=== PATIENT | female | born 1995 | race Caucasian/White ===

== ENCOUNTER → 2017-03-12 | Outpatient (CLI) | payer OTHER ==
--- NOTE | 2017-03-12 15:04 | CT ---
EXAMINATION TYPE: CT soft tissue neck w con DATE OF EXAM: 03/12/2017 HISTORY: Patient had abnormal US at doctors office showing a possible left side supraclavicular/neck base mass (globus). Mass is not palpable. Patient complains of dysphagia and dyspnea on exertion. COMPARISON: NONE CT DLP: 210.7 mGycm. Automated Exposure Control for Dose Reduction was Utilized. TECHNIQUE: CT scan of the neck is performed with IV Contrast, patient injected with 100 mL of Omnipa que 300, axial images are obtained, coronal and sagittal reformatted images are reviewed. FINDINGS: Airway: No gross abnormality seen. The oropharynx and nasopharynx are patent. Parotid/submandibular glands: No gross abnormality seen. No adjacent inflammation. Carotid/Vascular Structures: No evidence of occlusion, dissection, or focal stenosis. Osseous Structures: Osseous structures are intact with straightening of the usual cervical lordosis p resumed to be positional. No prevertebral soft tissue swelling. Other: Few nonenlarged anterior and posterior cervical chain lymph nodes are present. No evidence of adenopathy within the neck. No supraclavicular masses seen on the right or left correspond with the p revious possible abnormal ultrasound at an outside institution. IMPRESSION: No CT finding to correspond with the patient's possible left-sided supraclavicular/neck mass. No evid ence of focal mass or adenopathy.
== END | disposition home or self-care (01) ==
LOC: RADCTMAIN 13:50
PROVIDERS: ATTEND Surgery
DX: R22.1 Localized swelling, mass and lump, neck (principal)
CPT/HCPCS: 70491; Q9967

== ENCOUNTER → 2017-03-13 | Outpatient (CLI) | payer OTHER ==
--- NOTE | 2017-03-13 13:59 | XR ---
EXAMINATION TYPE: XR chest 2V DATE OF EXAM: 03/13/2017 COMPARISON: NONE HISTORY: Possible nodule TECHNIQUE: Frontal and lateral views of the chest are obtained. FINDINGS: There is no focal air space opacity, pleural effusion, or pneumothorax seen. The cardiac silhouette size is within normal limits. The osseous structures are intact. No pulmonary nodule or mass is identified. IMPRESSION: No acute cardiopulmonary process. No visualized pulmonary nodule or mass.
== END | disposition home or self-care (01) ==
LOC: RADXRMAIN 13:26
PROVIDERS: ATTEND Surgery
DX: R22.1 Localized swelling, mass and lump, neck (principal)
CPT/HCPCS: 71020

== ENCOUNTER 2020-04-14 18:57 | Emergency (ER) | payer OTHER ==
[2020-04-14] MEDS ORDERED: MORPHINE SULFATE 4 MG/ML SYRINGE IV STA (19:28)
[2020-04-14] MEDS ORDERED: SODIUM CHLORIDE 0.9% 500 ML 500 ML IV STA (19:28)
--- NOTE | 2020-04-14 19:40 | ED ---
General Adult HPI - General Source: patient, RN notes reviewed, old records reviewed Mode of arrival: ambulatory Limitations: no limitations <Roni De Luna - Last Filed: 04/14/20 20:57> <Roni Tavares - Last Filed: 04/14/20 22:44> - General Chief complaint: Abdominal Pain Stated complaint: abdominal pain Time Seen by Provider: 04/14/20 19:16 - History of Present Illness Initial comments: 24-year-old female presenting with left-sided abdominal pain. Pain began 2 hours prior to arrival. Patient has not had a bowel movement yet today. She has had some flatus. She denies fever. Pain was sudden in onset. Began as crampy pain. Left-sided shooting across the belly button to the right side. No preceding fever. No dysuria or hematuria. She does have some left flank pain as well. She denies vaginal discharge, she is finishing her menstrual cycle today. (Roni De Luna) - Related Data Previous Rx's Medication Instructions Recorded Ibuprofen [Motrin] 600 mg PO Q6HR PRN #20 tab 12/17/15 Penicillin V Potassium [Pen Vee K] 500 mg PO QID #40 tab 12/17/15 Allergies Allergy/AdvReac Type Severity Reaction Status Date / Time bee venom protein (honey bee) Allergy Rash/Hives Verified 04/14/20 19:02 Review of Systems ROS Other: All systems not noted in ROS Statement are negative. <Roni De Luna - Last Filed: 04/14/20 20:57> ROS Other: All systems not noted in ROS Statement are negative. <Roni Tavares - Last Filed: 04/14/20 22:44> ROS Statement: Those systems with pertinent positive or pertinent negative responses have been documented in the HPI. Past Medical History Past Medical History: No Reported History History of Any Multi-Drug Resistant Organisms: None Reported Additional Past Surgical History / Comment(s): finger surg, Past Psychological History: No Psychological Hx Reported Smoking Status: Never smoker Past Alcohol Use History: Rare Past Drug Use History: None Reported <Roni De Luna - Last Filed: 04/14/20 20:57> General Exam Limitations: no limitations General appearance: alert, in no apparent distress Head exam: Present: atraumatic, normocephalic Eye exam: Present: normal appearance ENT exam: Present: normal exam Neck exam: Present: normal inspection. Absent: tenderness, meningismus Respiratory exam: Present: normal lung sounds bilaterally. Absent: respiratory distress, wheezes, rales Cardiovascular Exam: Present: regular rate, normal rhythm GI/Abdominal exam: Present: soft, tenderness (generalized tenderness, worse on the left). Absent: distended, rigid Extremities exam: Present: normal inspection, normal capillary refill. Absent: pedal edema Back exam: Present: CVA tenderness (L), paraspinal tenderness Neurological exam: Present: alert, oriented X3, CN II-XII intact. Absent: motor sensory deficit Psychiatric exam: Present: normal affect, normal mood Skin exam: Present: warm, dry, intact. Absent: cyanosis, diaphoretic <Roni De Luna - Last Filed: 04/14/20 20:57> Course <Roni De Luna - Last Filed: 04/14/20 20:57> Vital Signs 04/14/20 04/14/20 18:58 21:58 Temperature 99 F 98.9 F Pulse Rate 72 78 Respiratory 18 16 Rate Blood Pressure 134/84 109/69 O2 Sat by Pulse 99 98 Oximetry - Reevaluation(s) Reevaluation #1: 04/14/20 20:52 patient reevaluated, symptoms have improved. X-ray does show a stool burden in the rectum and lower colon. We will attempt enema. (Roni De Luna) Reevaluation #2: 04/14/20 2100 care signed outat shift change to Dr. Tavares awaiting reevaluation. (Roni De Luna) Medical Decision Making - Lab Data Result diagrams: 04/14/20 20:02 04/14/20 20:02 <Roni De Luna - Last Filed: 04/14/20 20:57> - Lab Data Result diagrams: 04/14/20 20:02 04/14/20 20:02 - Radiology Data Radiology results: report reviewed (I did evaluate the imaging and report no evidence of acute findings other than there is evidence of fecal material in the lower colon or rectal area. Appendix appears be normal.), image reviewed <Roni Tavares - Last Filed: 04/14/20 22:44> - Medical Decision Making Patient was endorsed me by Dr. De Luna at our shift change pending CAT scan results and results of an enema. He did get no relief but has no pain at this time. I did discuss the patient's findings with her and her family. Patient be discharged after discussion she'll be discharged home with a bottle of citrate of magnesium as well as a Therevac. She would prefer to do this at home than in the hospital. We did discuss fiber and fluid intake. She'll be discharged with follow-up with her doctor return when necessary (Roni Tavares) - Lab Data Lab Results 04/14/20 04/14/20 04/14/20 Range/Units 20:02 20:02 20:02 WBC 7.1 (3.8-10.6) k/uL RBC 4.36 (3.80-5.40) m/uL Hgb 14.9 (11.4-16.0) gm/dL Hct 44.2 (34.0-46.0) % MCV 101.3 H (80.0-100.0) fL MCH 34.1 (25.0-35.0) pg MCHC 33.7 (31.0-37.0) g/dL RDW 11.3 L (11.5-15.5) % Plt Count 277 (150-450) k/uL Neutrophils % 75 % Lymphocytes % 17 % Monocytes % 5 % Eosinophils % 1 % Basophils % 1 % Neutrophils # 5.3 (1.3-7.7) k/uL Lymphocytes # 1.2 (1.0-4.8) k/uL Monocytes # 0.4 (0-1.0) k/uL Eosinophils # 0.1 (0-0.7) k/uL Basophils # 0.0 (0-0.2) k/uL PT 10.5 (9.0-12.0) sec INR 1.0 (<1.2) APTT 24.1 (22.0-30.0) sec Sodium (137-145) mmol/L Potassium (3.5-5.1) mmol/L Chloride (98-107) mmol/L Carbon Dioxide (22-30) mmol/L Anion Gap mmol/L BUN (7-17) mg/dL Creatinine (0.52-1.04) mg/dL Est GFR (CKD-EPI)AfAm (>60 ml/min/1.73 sqM) Est GFR (CKD-EPI)NonAf (>60 ml/min/1.73 sqM) Glucose (74-99) mg/dL Plasma Lactic Acid [place] (0.7-2.0) mmol/L Calcium (8.4-10.2) mg/dL Total Bilirubin (0.2-1.3) mg/dL AST (14-36) U/L ALT (4-34) U/L Alkaline Phosphatase (38-126) U/L Total Protein (6.3-8.2) g/dL Albumin (3.5-5.0) g/dL Amylase (30-110) U/L Lipase (23-300) U/L Urine Color Yellow Urine Appearance Clear (Clear) Urine pH 5.5 (5.0-8.0) Ur Specific [place] 1.025 (1.001-1.035) Urine Protein Negative (Negative) Urine Glucose (UA) Negative (Negative) Urine Ketones Negative (Negative) Urine Blood Negative (Negative) Urine Nitrite Negative (Negative) Urine Bilirubin Negative (Negative) Urine Urobilinogen <2.0 (<2.0) mg/dL Ur Leukocyte Esterase Negative (Negative) Urine HCG, Qual (Not Detectd) 04/14/20 04/14/20 04/14/20 Range/Units 20:02 20:02 20:02 WBC (3.8-10.6) k/uL RBC (3.80-5.40) m/uL Hgb (11.4-16.0) gm/dL Hct (34.0-46.0) % MCV (80.0-100.0) fL MCH (25.0-35.0) pg MCHC (31.0-37.0) g/dL RDW (11.5-15.5) % Plt Count (150-450) k/uL Neutrophils % % Lymphocytes % % Monocytes % % Eosinophils % % Basophils % % Neutrophils # (1.3-7.7) k/uL Lymphocytes # (1.0-4.8) k/uL Monocytes # (0-1.0) k/uL Eosinophils # (0-0.7) k/uL Basophils # (0-0.2) k/uL PT (9.0-12.0) sec INR (<1.2) APTT (22.0-30.0) sec Sodium 138 (137-145) mmol/L Potassium 4.1 (3.5-5.1) mmol/L Chloride 105 (98-107) mmol/L Carbon Dioxide 27 (22-30) mmol/L Anion Gap 6 mmol/L BUN 24 H (7-17) mg/dL Creatinine 1.15 H (0.52-1.04) mg/dL Est GFR (CKD-EPI)AfAm 76 (>60 ml/min/1.73 sqM) Est GFR (CKD-EPI)NonAf 66 (>60 ml/min/1.73 sqM) Glucose 103 H (74-99) mg/dL Plasma Lactic Acid [place] 1.1 (0.7-2.0) mmol/L Calcium 9.8 (8.4-10.2) mg/dL Total Bilirubin 0.8 (0.2-1.3) mg/dL AST 26 (14-36) U/L ALT 14 (4-34) U/L Alkaline Phosphatase 52 (38-126) U/L Total Protein 7.5 (6.3-8.2) g/dL Albumin 4.5 (3.5-5.0) g/dL Amylase 64 (30-110) U/L Lipase 185 (23-300) U/L Urine Color Urine Appearance (Clear) Urine pH (5.0-8.0) Ur Specific [place] (1.001-1.035) Urine Protein (Negative) Urine Glucose (UA) (Negative) Urine Ketones (Negative) Urine Blood (Negative) Urine Nitrite (Negative) Urine Bilirubin (Negative) Urine Urobilinogen (<2.0) mg/dL Ur Leukocyte Esterase (Negative) Urine HCG, Qual Not Detected (Not Detectd) Disposition Is patient prescribed a controlled substance at d/c from ED?: No <Roni De Luna - Last Filed: 04/14/20 20:57> Is patient prescribed a controlled substance at d/c from ED?: No <Roni Tavares - Last Filed: 04/14/20 22:44> Clinical Impression: Abdominal pain, Obstipation Disposition: HOME SELF-CARE Condition: Good Instructions (If sedation given, give patient instructions): Abdominal Pain (ED), Obstipation (ED), Constipation (ED) Additional Instructions: Indications for home as directed return when necessary Referrals: Brooks Walker DO [Primary Care Provider] - 1-2 days
[2020-04-14 20:11] LABS: Basophils % (A) 1 %; Eosinophils # (A) 0.1 k/uL (0-0.7); Eosinophils % (A) 1 %; HCT 44.2 % (34.0-46.0); HGB 14.9 gm/dL (11.4-16.0); Lymphocytes # (A) 1.2 k/uL (1.0-4.8); Lymphocytes % (A) 17 %; MCH 34.1 pg (25.0-35.0); MCHC 33.7 g/dL (31.0-37.0); MCV 101.3 fL (80.0-100.0); Mean Platelet Volume 6.9; Monocytes # (A) 0.4 k/uL (0-1.0); Monocytes % (A) 5 %; Neutrophils # (A) 5.3 k/uL (1.3-7.7); Neutrophils % (A) 75 %; Platelet Count 277 k/uL (150-450); RBC 4.36 m/uL (3.80-5.40); RDW 11.3 % (11.5-15.5); WBC 7.1 k/uL (3.8-10.6)
[2020-04-14 20:18] LABS: Appearance,Urine Clear (Clear); Bilirubin,Urine Negative (Negative); Blood,Urine Negative (Negative); Color,Urine Yellow; Glucose,Urine (UA) Negative (Negative); Ketones,Urine Negative (Negative); Leukocyte Esterase,Urine Negative (Negative); Nitrite,Urine Negative (Negative); PH, Urine 5.5 (5.0-8.0); Protein,Urine Negative (Negative); Specific Gravity,Urine 1.025 (1.001-1.035); Urobilinogen,Urine <2.0 mg/dL (<2.0)
[2020-04-14 20:23] LABS: Partial Thromboplastin Time 24.1 sec (22.0-30.0); Prothrombin Time 10.5 sec (9.0-12.0)
[2020-04-14 20:24] LABS: Albumin 4.5 g/dL (3.5-5.0); Calcium 9.8 mg/dL (8.4-10.2); Potassium 4.1 mmol/L (3.5-5.1); Total Bilirubin 0.8 mg/dL (0.2-1.3); Total Protein 7.5 g/dL (6.3-8.2)
[2020-04-14] MEDS ORDERED: SODIUM CHLORIDE 0.9% 500 ML 500 ML IV ONE (20:28)
--- NOTE | 2020-04-14 20:45 | XR ---
EXAMINATION TYPE: XR KUB DATE OF EXAM: 04/14/2020 COMPARISON: None INDICATION: Abdomen pain left lower quadrant TECHNIQUE: Single view abdomen upright view FINDINGS: There is a normal bowel gas pattern. No suspicious air-fluid levels or differential air-fluid levels are present. No free air is evident. Psoas margins are normal. No organomegaly is present. IMPRESSION: 1. Unremarkable Abdomen
[2020-04-14 21:59] VITALS: BP 109/69; PULSE 78; RESP 16; TEMP 98.9
--- NOTE | 2020-04-14 22:05 | CT ---
EXAMINATION TYPE: CT abdomen pelvis w con DATE OF EXAM: 04/14/2020 COMPARISON: 08/16/2012 INDICATION: LLQ pain DLP: 408.5 mGycm, Automated exposure control for dose reduction was used. CONTRAST: 100 mL of Isovue 300. Study performed without Oral Contrast TECHNIQUE: Axial images were obtained from above the diaphragm to the pubic rami in the axial plane a t 5 mm thick sections. Reconstructed images are reviewed on the computer in the coronal plane. FINDINGS: Limited CT sections are obtained the lung bases. The lung bases are clear. CT ABDOMEN: Liver: Normal Spleen: Normal Pancreas: Normal Adrenal glands: The adrenal glands are normal. Gallbladder: Normal Kidneys: No masses are evident. No hydronephrosis is present. No cysts are present. Delayed images were obtained through the kidneys, which remain unremarkable. Aorta: Normal Inferior vena cava: Normal. CT PELVIS: Loops of bowel within the abdomen and pelvis are normal. There may be some wall thickening of the distal rectosigmoid junction. Large fecal bolus is at the sigmoid colon. There is some fecal debris at the ascending colon. No suspicious dilated loops of bowel are evident. There are some fluid-filled small bowel loops within the pelvis could be focal ileus. Appendix: Normal as visualized. Urinary bladder: Normal. Genitourinary structures: Uterus is normal. Adnexal regions appear clear. Osseous structures: No suspicious lytic or sclerotic lesions. IMPRESSIONS: 1. There is a fecal bolus at the level the rectum. Some mild rectal wall thickening may be present. Correlate for colitis. 2. Fluid-filled small bowel loops within the pelvis could reflect some focal ileus. 3. Mild fecal retention. 4. Normal appendix
[2020-04-14] MEDS ORDERED: DOCUSATE 283 MG/5 ML ENEMA RECTAL STA (22:38)
[2020-04-14] MEDS ORDERED: MAGNESIUM CITRATE 296 ML BOTTLE PO ONE (22:38)
== END 2020-04-14 23:07 | disposition home or self-care (01) ==
LOC: EC 18:57
DX: K59.00 Constipation, unspecified (principal); R10.9 Unspecified abdominal pain; Z91.030 Bee allergy status
CPT/HCPCS: 36415; 80053; 82150; 83605; 83690; 85025; 85610; 85730; 81003; 81025; 74018; 74177; 99285; 96374; 96361 ×3; J2270; Q9967

== ENCOUNTER 2022-02-07 18:33 | Observation (INO) | payer OTHER ==
[2022-02-07] MEDS ORDERED: KETOROLAC 15 MG/ML 1 ML VIAL IVP STA (19:30)
[2022-02-07] MEDS ORDERED: SODIUM CHLORIDE 0.9% 1,000 ML IV STA (19:30)
[2022-02-07] MEDS ORDERED: diphenhydrAMINE 50 MG/ML 1 ML VIAL IVP STA (19:33)
[2022-02-07] MEDS ORDERED: PROCHLORPERAZINE INJ 10 MG/2 ML VIAL IVP STA (19:33)
--- NOTE | 2022-02-07 19:49 | ED ---
Headache HPI - General Source: RN notes reviewed Mode of arrival: ambulatory Limitations: no limitations <Berry Dash - Last Filed: 02/08/22 00:32> <Myke Hendricks - Last Filed: 02/11/22 02:23> - General Chief Complaint: Headache Stated Complaint: headache Time Seen by Provider: 02/07/22 19:11 - History of Present Illness Initial Comments: This is a pleasant 26-year-old female who has had intermittent headaches for the past 3 weeks. Patient states that the headache became more severe and more constant on Thursday. She states that these headaches have been Lasting anywhere from a few hours up to 7 hours. She is describing a frontal headache which is aching and throbbing in nature. Patient has had some visual disturbance, photosensitivity, patient has had no preceding aura. Patient states that she feels off. She states that she feels a little off balance when she has a headache plus she feels like she has some clumsiness when she is reaching for things with her hands. Patient saw her primary care provider and was referred to Dr. Gipson but has yet to make that appointment. Patient has had no imaging. Patient has no other health issues. No recent illness. No nausea or vomiting. Patient states there is no exacerbating or alleviating factors a headache. Current headache is about 7 out of 10 in intensity. Patient also states she is having a numb feeling on both sides of her face at times. Currently on the left side of her face. no fever or chills, no changes in vision or hearing, no sore throat or difficulty with speech, no neck pain, no chest pain or shortness of breath, no abdominal pain, no nausea or vomiting, no changes in urination or bowel movements, no numbness or tingling, no extremity pain, no skin rashes or lesions. Past medical, surgical, social, and family history reviewed. (Berry Dash) - Related Data Previous Rx's Medication Instructions Recorded Aspirin EC [Ecotrin Low Dose] 81 mg PO DAILY #30 tab 02/08/22 Butalb/Acetaminophen/Caffeine 1 each PO Q6H PRN #20 cap 02/08/22 [Fioricet 50-300-40 mg Capsule] Famotidine [Pepcid] 20 mg PO DAILY #30 tablet 02/08/22 Allergies Allergy/AdvReac Type Severity Reaction Status Date / Time bee venom protein (honey bee) Allergy Rash/Hives Verified 02/07/22 22:07 Review of Systems ROS Other: All systems not noted in ROS Statement are negative. <Berry Dash - Last Filed: 02/08/22 00:32> ROS Other: All systems not noted in ROS Statement are negative. <Myke Hendricks - Last Filed: 02/11/22 02:23> ROS Statement: Those systems with pertinent positive or pertinent negative responses have been documented in the HPI. Past Medical History Past Medical History: No Reported History History of Any Multi-Drug Resistant Organisms: None Reported Additional Past Surgical History / Comment(s): finger surg, Past Psychological History: No Psychological Hx Reported Smoking Status: Never smoker Past Alcohol Use History: Rare Past Drug Use History: None Reported <Berry Dash - Last Filed: 02/08/22 00:32> General Exam Limitations: no limitations General appearance: alert, in no apparent distress Head exam: Present: atraumatic, normocephalic, normal inspection Eye exam: Present: normal appearance, PERRL, EOMI. Absent: scleral icterus, co njunctival injection, nystagmus, periorbital swelling, periorbital tenderness Pupils: Present: normal accommodation ENT exam: Present: normal exam, normal oropharynx, mucous membranes dry, mucous membranes moist, TM's normal bilaterally, normal external ear exam Neck exam: Present: normal inspection, full ROM. Absent: tenderness, meningismus, lymphadenopathy Respiratory exam: Present: normal lung sounds bilaterally. Absent: respiratory distress, wheezes, rales, rhonchi, stridor Cardiovascular Exam: Present: regular rate, normal rhythm, normal heart sounds. Absent: systolic murmur, diastolic murmur, rubs, gallop, clicks GI/Abdominal exam: Present: soft, normal bowel sounds. Absent: distended, tenderness, guarding, rebound, rigid Extremities exam: Present: normal inspection, full ROM, normal capillary refill. Absent: tenderness, pedal edema, joint swelling, calf tenderness Back exam: Present: normal inspection Neurological exam: Present: alert, oriented X3, CN II-XII intact, normal gait Expanded Patient oriented to: Present: person, place, time Speech: Present: fluid speech Cranial nerves: EOM's Intact: Normal, Gag Reflex: Normal, Tongue Deviation: Normal, Nystagmus: Normal, Facial Sensation: Abnormal Left (Abnormal to light touch), Facial Palsy with Forehead Movement: Normal, Facial Palsy without Forehead Movement: Normal Cerebellar function: Finger to Nose: Normal (Patient does have some difficulty with this maneuver noted with the left hand however is able to complete the task), Heel to Sullivan: Normal, Romberg: Normal Upper motor neuron: Loc Neglect: Normal, Pronator Drift: Abnormal Left (Possible very minimal impairment noted with the left hand), Sensory Extinction: Normal Sensory exam: Upper Extremity Light Touch: Normal, Upper Extremity Pin Prick: Normal, Lower Extremity Light Touch: Normal, Lower Extremity Pin Prick: Normal Motor strength exam: RUE: 5, LUE: 5, RLE: 5, LLE: 5 Eye Response: (4) open spontaneously Motor Response: (6) obeys commands Verbal Response: (5) oriented [place] Total: 15 Psychiatric exam: Present: normal affect, normal mood Skin exam: Present: warm, dry, intact, normal color. Absent: rash <Berry Dash - Last Filed: 02/08/22 00:32> - General Exam Comments Initial Comments: Patient does not appear to be ill or toxic. Vital signs reviewed, cranial nerves II through XII intact. (Berry Dash) Course <Berry Dash - Last Filed: 02/08/22 00:32> Vital Signs 02/07/22 02/07/22 18:36 22:39 Temperature 98.1 F Pulse Rate 63 64 Respiratory 20 16 Rate Blood Pressure 135/70 106/62 O2 Sat by Pulse 98 100 Oximetry - Reevaluation(s) Reevaluation #1: 02/07/22 23:41 Medical record is reviewed Symptoms are improved here in the emergency department Patient is informed of results and questions answered Patient in no distress (Berry Dash) - Consultations Consultation #1: Case discussed in detail with ED attending physician as well as the on-call neurologist, Dr. Kc who recommends a CTA of the head and neck and admission with an MRI in the morning (Berry Dash) Consultation #2: Case discussed with Ange from [facility] since admission of the patient under Dr Zayas (Berry Dash) Medical Decision Making - Lab Data Result diagrams: 02/07/22 20:21 02/07/22 20:21 <Berry Dash - Last Filed: 02/08/22 00:32> - Lab Data Result diagrams: 02/07/22 20:21 02/07/22 20:21 <Myke Hendricks - Last Filed: 02/11/22 02:23> - Medical Decision Making She was reevaluated several times here in the ER. Serial neurological evaluati ons reveals no significant change other than improvement of the patient's headache. This case was discussed with on-call neurology who suggested CTA of the brain and neck which turned out to be unremarkable. MRI will be ordered for the morning. Discussed with the APC from [facility] group. The case was discussed in detail with ED attending physician. Presentation, findings, treatment plan discussed in detail. [employer] Dr. Hendricks ([facility]) - Lab Data Lab Results 02/07/22 02/07/22 02/07/22 Range/Units 20:21 20:21 22:32 WBC 5.4 (3.8-10.6) k/uL RBC 3.90 (3.80-5.40) m/uL Hgb 13.2 (11.4-16.0) gm/dL Hct 38.2 (34.0-46.0) % MCV 98.0 (80.0-100.0) fL MCH 33.7 (25.0-35.0) pg MCHC 34.4 (31.0-37.0) g/dL RDW 10.9 L (11.5-15.5) % Plt Count 217 (150-450) k/uL MPV 7.3 Neutrophils % 50 % Lymphocytes % 40 % Monocytes % 6 % Eosinophils % 1 % Basophils % 1 % Neutrophils # 2.7 (1.3-7.7) k/uL Lymphocytes # 2.2 (1.0-4.8) k/uL Monocytes # 0.3 (0-1.0) k/uL Eosinophils # 0.1 (0-0.7) k/uL Basophils # 0.1 (0-0.2) k/uL ESR 4 (0-20) mm/hr Sodium 135 L (137-145) mmol/L Potassium 4.2 (3.5-5.1) mmol/L Chloride 102 (98-107) mmol/L Carbon Dioxide 23 (22-30) mmol/L Anion Gap 10 mmol/L BUN 18 H (7-17) mg/dL Creatinine 1.09 H (0.52-1.04) mg/dL Est GFR (CKD-EPI)AfAm 80 (>60 ml/min/1.73 sqM) Est GFR (CKD-EPI)NonAf 70 (>60 ml/min/1.73 sqM) Glucose 75 (74-99) mg/dL Calcium 9.0 (8.4-10.2) mg/dL Magnesium 2.0 (1.6-2.3) mg/dL Total Bilirubin 0.8 (0.2-1.3) mg/dL AST 24 (14-36) U/L ALT 13 (4-34) U/L Alkaline Phosphatase 55 (38-126) U/L C-Reactive Protein <0.5 (<1.0) mg/dL Total Protein 6.7 (6.3-8.2) g/dL Albumin 4.2 (3.5-5.0) g/dL Urine HCG, Qual Not Detected (Not Detectd) Disposition Is patient prescribed a controlled substance at d/c from ED?: No Time of Disposition: 00:32 Decision to Admit Reason: Admit from EC Decision Time: 00:32 <Berry Dash - Last Filed: 02/08/22 00:32> <Myke Hendricks - Last Filed: 02/11/22 02:23> Clinical Impression: New onset headache, Paresthesia, Ataxia Disposition: ADMITTED IP TO THIS [facility] Condition: Stable
--- NOTE | 2022-02-07 19:57 | CT ---
EXAMINATION TYPE: CT brain wo con DATE OF EXAM: 02/07/2022 COMPARISON: None HISTORY: Headache x [address] DLP: 1145.4 mGycm Automated exposure control for dose reduction was used. Images obtained of the brain with no contrast. Ventricles have normal size. There is no mass effect or midline shift. No sign of intracranial hemorr arianne. Calvarium is intact. No evidence of cerebral edema. IMPRESSION: Normal unenhanced head CT scan
[2022-02-07 20:27] LABS: Basophils # (A) 0.1 k/uL (0-0.2); Basophils % (A) 1 %; Eosinophils # (A) 0.1 k/uL (0-0.7); Eosinophils % (A) 1 %; HCT 38.2 % (34.0-46.0); HGB 13.2 gm/dL (11.4-16.0); Lymphocytes # (A) 2.2 k/uL (1.0-4.8); Lymphocytes % (A) 40 %; MCH 33.7 pg (25.0-35.0); MCHC 34.4 g/dL (31.0-37.0); Mean Platelet Volume 7.3; Monocytes # (A) 0.3 k/uL (0-1.0); Monocytes % (A) 6 %; Neutrophils # (A) 2.7 k/uL (1.3-7.7); Neutrophils % (A) 50 %; Platelet Count 217 k/uL (150-450); RDW 10.9 % (11.5-15.5); WBC 5.4 k/uL (3.8-10.6)
[2022-02-07 20:41] LABS: ALT 13 U/L (4-34); AST 24 U/L (14-36); African American GFR (CKD) 80 (>60 ml/min/1.73 sqM); Albumin 4.2 g/dL (3.5-5.0); Alkaline Phosphatase 55 U/L (38-126); Anion Gap 10 mmol/L; Blood Urea Nitrogen 18 mg/dL (7-17); C Reactive Protein <0.5 mg/dL (<1.0); Carbon Dioxide 23 mmol/L (22-30); Chloride 102 mmol/L (98-107); Glucose 75 mg/dL (74-99); Non-African American GFR(CKD) 70 (>60 ml/min/1.73 sqM); Potassium 4.2 mmol/L (3.5-5.1); Sodium 135 mmol/L (137-145); Total Bilirubin 0.8 mg/dL (0.2-1.3); Total Protein 6.7 g/dL (6.3-8.2)
[2022-02-07 21:19] LABS: Erythrocyte Sedimentation Rate 4 mm/hr (0-20)
--- NOTE | 2022-02-07 23:30 | CT ---
EXAMINATION TYPE: CT angio head neck DATE OF EXAM: 02/07/2022 COMPARISON: None HISTORY: Headache CT DLP: 327.7 mGycm Automated exposure control for dose reduction was used. CONTRAST: Performed with IV Contrast, patient injected with 65 mL of Isovue 370. Images obtained from the top of the aortic arch to the vertex of the brain with the IV contrast. Ther e are 3-D post processed images. There is normal branching pattern of the great vessels on the aortic arch. There is arterial flow in the subclavian arteries bilaterally. There is arterial flow in the common internal and external carot id arteries bilaterally. There is wide patency of the carotid artery bifurcations. There is arterial flow in both vertebral arteries. There is arterial flow in the vertebral basilar artery system. There is no evidence of carotid or vertebral artery aneurysm or dissection. There is arterial flow in the anterior middle and posterior cerebral arteries bilaterally. No evidenc e of intracranial aneurysm or neovascularity. No mass effect. No evidence of hemodynamic stenosis. There is normal enhancement of the venous sinuses. IMPRESSION: Negative CT angiogram of the neck. Negative CT angiogram of the brain.
[2022-02-08] MEDS ORDERED: KETOROLAC 15 MG/ML 1 ML VIAL IVP PRN (00:37)
[2022-02-08] MEDS ORDERED: NALOXONE 0.4 MG/ML 1 ML VIAL IV PRN (00:37)
[2022-02-08] MEDS ORDERED: ACETAMINOPHEN TAB 325 MG TAB PO PRN (00:37)
[2022-02-08] MEDS ORDERED: ONDANSETRON 4 MG/2 ML VIAL IVP PRN (00:37)
[2022-02-08] MEDS ORDERED: MORPHINE SULFATE 4 MG/ML SYRINGE IV PRN (00:37)
[2022-02-08] MEDS ORDERED: SODIUM CHLORIDE 0.9% 1,000 ML IV SCH (00:45)
[2022-02-08 08:03] VITALS: RESP 12
[2022-02-08] MEDS ORDERED: ASPIRIN 81 MG PO STA (10:56)
--- NOTE | 2022-02-08 11:16 | P.HPIM ---
History of Present Illness Patient is a pleasant 26-year-old female came in with the intermittent headaches going on for 3 days and since last 5 days it's been constant started in the right frontal above the eyelid area denied any symptoms of sinusitis now it spread to bilateral temples and frontal area sharp in nature 7-8 in severity goes up to 9 much better today had some photophobia denied any other weakness or hearing problems year pain, patient denied any nausea vomiting. Patient is taking Toradol was given Compazine along with Benadryl presently on Zofran. Patient had a CT angios the head which did not show any significant abnormality neurology was consulted MRI was ordered although unfortunately MRI cannot be done over the weekend here. Patient has mildly elevated creatinine of 1.09. Patient doesn't have any vision problems or hearing problems doesn't have any weakness. REVIEW OF SYSTEMS: CONSTITUTIONAL: No fever, no malaise, no fatigue. HEENT: No recent visual problems or hearing problems. Denied any sore throat. CARDIOVASCULAR: No chest pain, orthopnea, PND, no palpitations, no syncope. PULMONARY: No shortness of breath, no cough, no hemoptysis. GASTROINTESTINAL: No diarrhea, no nausea, no vomiting, no abdominal pain. NEUROLOGICAL: no weakness, no numbness. HEMATOLOGICAL: Denies any bleeding or petechiae. GENITOURINARY: Denies any burning micturition, frequency, or urgency. MUSCULOSKELETAL/RHEUMATOLOGICAL: Denies any joint pain, swelling, or any muscle pain. ENDOCRINE: Denies any polyuria or polydipsia. The rest of the 14-point review of systems is negative. PHYSICAL EXAMINATION: GENERAL: The patient is alert and oriented x3, not in any acute distress. Well developed, well nourished. HEENT: Pupils are round and equally reacting to light. EOMI. No scleral icterus. No conjunctival pallor. Normocephalic, atraumatic. No pharyngeal erythema. No thyromegaly. CARDIOVASCULAR: S1 and S2 present. No murmurs, rubs, or gallops. PULMONARY: Chest is clear to auscultation, no wheezing or crackles. ABDOMEN: Soft, nontender, nondistended, normoactive bowel sounds. No palpable organomegaly. MUSCULOSKELETAL: No joint swelling or deformity. EXTREMITIES: No cyanosis, clubbing, or pedal edema. NEUROLOGICAL: Gross neurological examination did not reveal any focal deficits. SKIN: No rashes. Assessment and plan -Headache: Etiology is unclear CT angios is negative and discussed with neurology there is a slight concern about venous thrombosis because of that reason he is recommending MRV. If MRI is done today patient can be discharged later today. Her headache is already better can still be migraine. -Mild elevation of serum creatinine this may be her baseline since she is getting Toradol will monitor and patient and sustaining in the hospital, if she is discharged we'll repeat the basic metabolic profile in couple days DVT prophylaxis: Early ambulation Past Medical History Past Medical History: No Reported History History of Any Multi-Drug Resistant Organisms: None Reported Additional Past Surgical History / Comment(s): finger surg, Past Psychological History: No Psychological Hx Reported Smoking Status: Never smoker Past Alcohol Use History: Rare Past Drug Use History: None Reported Medications and Allergies Home Medications Medication Instructions Recorded Confirmed Type No Known Home Medications 02/07/22 02/07/22 History Allergies Allergy/AdvReac Type Severity Reaction Status Date / Time bee venom protein (honey bee) Allergy Rash/Hives Verified 02/07/22 22:07 Physical Exam Vitals: Vital Signs Temp Pulse Pulse Resp BP BP Pulse Ox 02/08/22 07:00 98.1 F 61 12 102/65 100 02/08/22 02:02 98.0 F 68 16 97/61 98 02/07/22 22:39 64 16 106/62 100 02/07/22 18:36 98.1 F 63 20 135/70 98 Intake and Output 02/07/22 02/08/22 02/08/22 22:59 06:59 14:59 Intake Total 118 Balance 118 Intake: Oral 118 Other: # Voids 1 Weight 49.895 kg 49.895 kg Results CBC & Chem 7: 02/07/22 20:21 02/07/22 20:21 Labs: Abnormal Lab Results - Last 24 Hours (Table) 02/07/22 02/07/22 Range/Units 20:21 20:21 RDW 10.9 L (11.5-15.5) % Sodium 135 L (137-145) mmol/L BUN 18 H (7-17) mg/dL Creatinine 1.09 H (0.52-1.04) mg/dL Thrombosis Risk Factor Assmnt - Choose All That Apply Any of the Below Risk Factors Present?: No
--- NOTE | 2022-02-08 11:17 | P.CNNES ---
History of Present Illness Consult date: 02/08/22 Requesting physician: Berry Dash Reason for Consult: Headache, mild ataxia, paresthesia History of Present Illness: Patient is a 26-year-old right-handed female came to the hospital yesterday at 6:33 PM for evaluation of new onset headaches and incoordination. Patient states that she has developed new onset headaches lately. The first episode occurred 3 weeks ago, pressure headache that occurred in the evening after she came back from work, which she rated 6/10. She went to sleep, and the next day the headache was gone. The headache came back on last 01/31/2022 at around 8:45 PM when she developed a headache again pointing to the bifrontal, right temporal region. She rated at 8/10, also had a nausea with it. She tried to sleep, but was in and out of sleep. At around 2:30 AM she vomited once. She felt dizzy, couldn't walk. Also noticed some numbness of the right mandibular region and pain in the right cheek region/upper jaw region. After vomiting she was able to go to sleep, and the next morning she woke up and was feeling fine. She was fine on Thursday and Thursday, but then the headache came back on Thursday (4 days prior to arrival to ER). This headache was less severe, 6/10, but in volving the same location, also associated with numbness of the right mandibular region. She did have nausea but no vomiting. She noticed throbbing in the upper teeth region on the right. She took Tylenol and Motrin for each of them and did not work. She has seen a dentist just a month ago and her teeth are fine. Biting or other jaw movement does not hurt. Patient noticed that she was feeling incoordinated with the right arm when she was trying to picker packer her cell phone. She was missing it. Her mental functioning was also not perfect, as after pouring coffee in the cup, she started placing pot in the cupboard, instead of placing it in the coffee pot khan. As the headache persisted, therefore patient came to ER yesterday. She was given Benadryl, Zofran and Dilaudid. The headache has improved today, 2/10 but not gone. Denies any numbness tingling or nausea. 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 Patient underwent neck adjustment around January 21 through the . She does not undergo twisting, only lateral movements. Patient admits to having her mother and brother with migraines. She denies any tobacco marijuana, drinks alcohol very socially. She has been on control pills for last 10 years. The most recent brand Volena control pills she has been taking for last 3 years. She denies any head or neck injury otherwise. Denies any slurred speech, facial droop, double vision or any focal numbness tingling or weakness involving extremities. Vital signs arrival blood pressure 135/70, pulse rate 63 temperature 98.1. Blood test shows normal CBC, sodium 135 potassium 4.2, BUN 18, creatinine 1.09. Hepatic panel is normal, urine hCG negative. Hemoglobin A1c 5.1 on 02/03/2022, lipid panel with cholesterol 213, LDL 87, HDL [address] head read as normal. I personally reviewed CT head, agree with the findings. Paranasal sinuses are clear. CTA of head and neck normal. I personally reviewed CTA of head and neck and appears normal. No dissection. Review of Systems As mentioned pertinent positives and negatives in the HPI. All other review of systems reviewed and are unremarkable. Constitutional: Denies chills, Denies fever Ears, nose, mouth and throat: Reports dental pain, Reports headache, Denies dysphagia, Denies sore throat Cardiovascular: Denies chest pain, Denies shortness of breath Respiratory: Denies cough Gastrointestinal: Reports nausea, Reports vomiting, Denies abdominal pain, Denies diarrhea Genitourinary: Denies dysuria, Denies hematuria Musculoskeletal: Denies myalgias Integumentary: Denies pruritus, Denies rash Neurological: Reports as per HPI, Reports numbness Psychiatric: Denies anxiety, Denies depression Endocrine: Denies fatigue, Denies weight change Past Medical History Past Medical History: No Reported History History of Any Multi-Drug Resistant Organisms: None Reported Additional Past Surgical History / Comment(s): finger surg, Past Psychological History: No Psychological Hx Reported Smoking Status: Never smoker Past Alcohol Use History: Rare Past Drug Use History: None Reported Medications and Allergies Home Medications Medication Instructions Recorded Confirmed Type Aspirin EC [Ecotrin Low Dose] 81 mg PO DAILY #30 tab 02/08/22 Rx Butalb/Acetaminophen/Caffeine 1 each PO Q6H PRN #20 cap 02/08/22 Rx [Fioricet 50-300-40 mg Capsule] Famotidine [Pepcid] 20 mg PO DAILY #30 tablet 02/08/22 Rx Allergies Allergy/AdvReac Type Severity Reaction Status Date / Time bee venom protein (honey bee) Allergy Rash/Hives Verified 02/07/22 22:07 Physical Examination - Vital Signs Vital Signs: Vital Signs Temp Pulse Pulse Resp BP BP Pulse Ox 02/08/22 07:00 98.1 F 61 12 102/65 100 02/08/22 02:02 98.0 F 68 16 97/61 98 02/07/22 22:39 64 16 106/62 100 02/07/22 18:36 98.1 F 63 20 135/70 98 Intake and Output 02/07/22 02/08/22 02/08/22 22:59 06:59 14:59 Intake Total 118 Balance 118 Intake: Oral 118 Other: # Voids 1 Weight 49.895 kg 49.895 kg Patient is a young female, very pleasant, in no acute distress. Patient is alert awake oriented to time place and person. Speech and language functions are normal. Patient can name and repeat very well. No aphasia or dysarthria. Attention, concentration and fund of knowledge is adequate. On cranial nerve examination, pupils are equal, round and reacting to light, visual soto are full on confrontation, with no neglect on double simultaneous stimulation. No ptosis. Extraocular muscles are intact with no nystagmus. Face is symmetric, tongue protrudes to the midline. Palatal elevation and sensation normal, hearing and shoulder shrug normal, facial sensation normal. On muscle strength testing, there is no pronator drift and the strength is normal in arms and legs distally and proximally. Deep tendon reflexes are symmetric (right/left) diminished in the upper limbs, 1 in the lower limbs and plantars downgoing. Sensory to touch and temperature is equal with no neglect on double simultaneous stimulation. Cerebellar function showed very mild dysmetria for [id number] testing on the right side, but resolved on repeated testing. No ataxia or dysmetria in the left side. No dysdiadochokinesia. No ataxia for [id number] testing on either side. Tone and bulk of muscles normal. Gait deferred. On general examination, there is no carotid bruit or murmur, S1-S2 audible. Chest is clear on consultation. Abdomen is soft nontender. No organomegaly, bowel sounds present. Peripheral pulses are present. No edema. Results - Laboratory Findings CBC and BMP: 02/07/22 20:21 02/07/22 20:21 Abnormal Lab Findings: Abnormal Labs 02/07/22 02/07/22 20:21 20:21 RDW 10.9 L Sodium 135 L BUN 18 H Creatinine 1.09 H Assessment and Plan Assessment: * 26-year-old female, with new onset of intermittent vascular headache, associated with paresthesias of the right mandibular region, blurred vision and slight incoordination with the right arm. The headache would resolve initially, but now has persistent for the last 5 days. CTA of head and neck negative for any vertebral or carotid artery dissection. Rule out dural venous sinus thrombosis. Patient does take control pills. Plan: * MRI brain, MRV head, rule out CVA, rule out venous sinus thrombosis. * Aspirin 325 mg. * Neurology will follow after above tests completed. * Thank you for the consult. Discussed with Dr. Zayas. Addendum: MRI of the brain revealed no evidence of intracranial mass or acute/subacute infarct. Minimal right frontal lobe white matter changes, which are nonspecific and are unusual for a 26 years old. Correlate for demyelination. I personally reviewed MRI of the brain, agree with evidence of a single lesion in the right frontal subcortical white matter lesion, concerning for demyelinating process. No other lesions noted. MRV of the brain revealed no evidence of venous sinus thrombosis. Anaplastic left transverse sinus, dominant right transverse sinus. Patient clear for discharge on aspirin 81 mg daily, Fioricet as needed for headaches. Patient to follow-up with neurologist regarding brain MRI. She may need another MRI of the brain with and without contrast. Time with Patient: Greater than 30
[2022-02-08 13:08] VITALS: BP 98/60; PULSE 58; TEMP 97.5
--- NOTE | 2022-02-08 15:03 | MR ---
EXAMINATION TYPE: MR brain wo con DATE OF EXAM: 02/08/2022 12:59 PM COMPARISON: CT brain 02/07/2022. CLINICAL INDICATION:Female, 26 years old with history of headache; TECHNIQUE: Multi planar, multi sequence imaging was performed through the brain including: T1, T2, In version recovery, Diffusion weighted imaging, . No gadolinium was given. FINDINGS: The sibley-white junctions, ventricular system, and cisterns appear unremarkable. Diffusion-weighted imaging shows no evidence of restricted diffusion. No extra-axial fluid collections. No evidence for mass. Right frontal lobe high T2 signal along with a couple more foci in the left frontal lobe which are smaller. The largest in the right frontal lobe measures up to 8 mm. The bone marrow signal is within normal limits. The paranasal sinuses and globes are unremarkable. IMPRESSION: 1. No evidence of intracranial mass or acute/subacute infarct. 2. Minimal right frontal lobe white matter changes which are nonspecific and are unusual for a 26-yea r-old. Correlate for demyelination
--- NOTE | 2022-02-08 15:03 | MR ---
EXAMINATION TYPE: MR venography head wo con DATE OF EXAM: 02/08/2022 12:44 PM CLINICAL INDICATION:Female, 26 years old with history of Rule out venous sinus thrombus, new onset GUERRERO ; COMPARISON: MR brain same day. TECHNIQUE: MRV of the brain was performed utilizing two-dimensional [id number] technique. FINDINGS: There is no evidence of venous occlusion or collateral circulation. There is no evidence of sinus th rombosis. There is a aplastic left transverse sinus and dominant right transverse sinus. IMPRESSION: 1. No evidence of venous sinus thrombosis. 2. Aplastic left transverse sinus, dominant right transverse sinus.
--- NOTE | 2022-02-09 18:04 | P.DS ---
Providers Date of admission: 02/08/22 01:11 Attending physician: Marco Antonio Zayas Consults: 02/08/22 00:37 Consult Physician Stat Consulting Provider: Dany Ospina Consult Reason/Comments: Headache, mild ataxia, paresthesia Do you want consulting provider notified?: Already Contacted Primary care physician: Brooks Walker Hospital Course: Diagnosis Headache Mild acute renal injury Full Code Discharge Disposition Patient is stable for discharge. Discharged on fioricet for migraine headache as needed as well as aspirin 81 mg daily. Follow up with neurology outpatient. Follow up with Dr Walker in 1-2 days outpatient. Repeat BMP in 2 to 3 days. Hospital Course Patient is a pleasant 26-year-old female came in with the intermittent headaches going on for 3 days and since last 5 days it's been constant started in the right frontal above the eyelid area denied any symptoms of sinusitis now it spread to bilateral temples and frontal area sharp in nature 7-8 in severity goes up to 9 much better today had some photophobia denied any other weakness or hearing problems year pain, patient denied any nausea vomiting. Patient is taking Toradol was given Compazine along with Benadryl presently on Zofran. Patient had a CT angios the head which did not show any significant abnormality neurology was consulted. Patient has mildly elevated creatinine of 1.09. Patient doesn't have any vision problems or hearing problems doesn't have any weakness. Patient underwent brain MRI which shows no evidence for intracranial mass or acute/subacute infarct. There is minimal right frontal lobe white matter changes which are nonspecific and are unusual for a 26 year old, correlate for demyelination. Patient also underwent MR venography which shows no evidence for venous sinus thrombosis, there is aplastic left transverse sinus, dominant right transverse sinus. Patient is discharged home on medication for migraine control and aspirin 81 mg daily, and also repeat BMP. Recommend to follow up with neurology outpatient. Please see medical H&P for additional information. Please see mediation reconciliation for a list of current medication. Thank you for allowing us to participate in the care of this patient. The impression and plan of care has been dictated by Ange Sibley, Nurse Practitioner as directed. Dr. Marquez MD I have performed a history and physical examination and medical decision making of this patient, discussed the same with the dictator, and agree with the dictators assessment and plan as written, documented as a scribe. Based on total visit time, I have performed more than 50% of this visit. Patient Condition at Discharge: Stable Plan - Discharge Summary New Discharge Prescriptions: New Aspirin EC [Ecotrin Low Dose] 81 mg PO DAILY #30 tab Butalb/Acetaminophen/Caffeine [Fioricet 50-300-40 mg Capsule] 1 each PO Q6H PRN #20 cap PRN Reason: Migraine Headache Famotidine [Pepcid] 20 mg PO DAILY #30 tablet Discharge Medication List Aspirin EC [Ecotrin Low Dose] 81 mg PO DAILY #30 tab 02/08/22 [Rx] Butalb/Acetaminophen/Caffeine [Fioricet 50-300-40 mg Capsule] 1 each PO Q6H PRN #20 cap 02/08/22 [Rx] Famotidine [Pepcid] 20 mg PO DAILY #30 tablet 02/08/22 [Rx] Follow up Appointment(s)/Referral(s): Suzie Smith MD [REFERRING] - 1 Week (Neurologist referral ) Brooks Walker DO [Primary Care Provider] - 1-2 Days Jean York MD [Medical Doctor] - 1 Week (Neurologist referral) Ambulatory/Diagnostic Orders: Basic Metabolic Panel [LAB.AMB] Time Frame: 2 Days, Location: None Selected Patient Instructions/Handouts: Migraine Headache (ED) Activity/Diet/Wound Care/Special Instructions: Recommend following up with neurology on discharge in 1 to 2 weeks Follow up with primary care in 2-3 days post discharge. New medication fioricet given for migraine, take as needed Discharge Disposition: HOME SELF-CARE
== END 2022-02-08 16:18 | disposition home or self-care (01) ==
LOC: EC 18:33 → 6NMEDSUR 02-08 01:11
PROVIDERS: ADMIT Internal Medicine; ATTEND Internal Medicine
DX: G43.909 Migraine, unspecified, not intractable, without status migrainosus (principal); N17.9 Acute kidney failure, unspecified; Z79.82 Long term (current) use of aspirin; Z32.02 Encounter for pregnancy test, result negative; Z79.3 Long term (current) use of hormonal contraceptives
CPT/HCPCS: 96374; 96375; 99285; 36415; 80053; 85652; 83735; 85025; 86140; 81025; 70496; 70450; 70498; 70544; 70551; G0378; J1200; J0780; J1885; Q9967

== ENCOUNTER → 2022-02-28 | Outpatient (CLI) | payer OTHER ==
--- NOTE | 2022-03-05 22:03 | CONS ---
CONSULTATION This is a 24-hour Holter. Underlying rhythm is sinus with an average heart rate of 76 beats per minute. Heart rate varied from 47 beats per minute to 140 beats per minute. There were no episodes of sustained ventricular or supraventricular tachyarrhythmias. There were no episodes of more than 2 second pauses. CONCLUSIONS: This 24-hour Holter shows sinus rhythm with episodes of sinus bradycardia and sinus tachycardia. MMODL / IJN: [id number] /
== END | disposition home or self-care (01) ==
LOC: RADECHMAIN 07:40
PROVIDERS: ATTEND Family Medicine
DX: R00.2 Palpitations (principal); R00.1 Bradycardia, unspecified
CPT/HCPCS: 93225; 93226

== ENCOUNTER → 2023-02-02 | Outpatient (CLI) | payer OTHER ==
--- NOTE | 2023-02-02 20:38 | US ---
EXAMINATION TYPE: US pelvic complete DATE OF EXAM: 02/02/2023 COMPARISON: CT 04/03 CLINICAL INDICATION: Female, 27 years old with history of R10.2 PELVIC PAIN; TECHNIQUE: Transabdominal (TA). Transabdominal sonographic images of the pelvis were acquired. EXAM MEASUREMENTS: Uterus: 4.8 x 1.5 x 2.4 cm Endometrial Stripe: 0.3 cm Right Ovary: 2.8 x 1.2 x 1.9 cm Left Ovary: 2.8 x 1.2 x 1.5 cm 1. Uterus: Anteverted small in size 2. Endometrium: wnl 3. Right Ovary: wnl 4. Left Ovary: wnl 5. Bilateral Adnexa: wnl 6. Posterior cul-de-sac: no free fluid seen Bladder is sonolucent. Posterior wall is normal. IMPRESSION: 1. No pelvic ultrasound abnormality.
== END | disposition home or self-care (01) ==
LOC: RADUSWWP 13:01
PROVIDERS: ATTEND Obstetrics & Gynecology
DX: R10.2 Pelvic and perineal pain (principal)
CPT/HCPCS: 76856